=== PATIENT | female | born 1970 | race Caucasian/White ===

== ENCOUNTER 2023-05-17 01:28 | Emergency (ER) | payer SELFPAY ==
[2023-05-17] MEDS ORDERED: METHYLPREDNISOLONE 125 MG INJ ONE (01:53)
[2023-05-17] MEDS ORDERED: FAMOTIDINE 20 MG/2 ML VIAL IV ONE (01:54)
[2023-05-17] MEDS ORDERED: NA CHLORIDE 0.9% 1,000 ML ONE (01:54)
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
[2023-05-17] MEDS ORDERED: KETOROLAC 30 MG/ML INJ ONE (03:04)
[2023-05-17 03:28] VITALS: TEMP 99
[2023-05-17 03:34] VITALS: BP 147/114; O2SAT 94
== END 2023-05-17 03:12 | disposition home or self-care (01) ==
LOC: ER 01:28
DX: T78.3XXA Angioneurotic edema, initial encounter (principal); T59.811A Toxic effect of smoke, accidental (unintentional), initial encounter
CPT/HCPCS: 96374; 96375; 99284; J2930; J7030